=== PATIENT | female | born 1985 | race Caucasian/White ===

== ENCOUNTER 2020-10-23 09:05 | Emergency (ER) | payer MEDICAID ==
[~2020-10-23] VITALS: Ht 170.2 cm; Wt 229.1 kg
[2020-10-23] MEDS ORDERED: normal saline 1000ML IV soln IVB ONE (09:40)
[2020-10-23] MEDS ORDERED: ondansetron/PF 4mg/2ml inj IV ONE (09:40)
[2020-10-23 10:04] LABS: BASOPHILS % (AUTO) 0.4 % (0-1); EOSINOPHILS # (AUTO) 0.4 X10'3 (0-0.9); EOSINOPHILS % (AUTO) 3.3 % (0-6); HEMATOCRIT 38.2 % (35.0-45.0); HEMOGLOBIN 12.9 g/dl (12.0-16.0); LYMPHOCYTES # (AUTO) 1.7 X10'3 (1.1-4.8); LYMPHOCYTES % (AUTO) 15.9 % (21-51); MEAN CORPUSCULAR HEMOGLOBIN 29.4 PG (27.0-31.0); MEAN CORPUSCULAR HGB CONC 33.6 g/dL (33.0-36.5); MEAN CORPUSCULAR VOLUME 87.4 FL (78-98); MONOCYTES # (AUTO) 0.6 X10'3 (0-0.9); MONOCYTES % (AUTO) 5.3 % (2-12); NEUTROPHILS # (AUTO) 8.2 X10'3 (1.8-7.7); NEUTROPHILS % (AUTO) 75.1 % (42-75); PLATELET COUNT 297 X10'3 (140-440); RED BLOOD COUNT 4.38 X10'6 (4.20-5.60); RED CELL DISTRIBUTION WIDTH 14.2 % (11.5-14.5)
[2020-10-23 10:14] LABS: ALANINE AMINOTRANSFERASE 35 U/L (12-78); ALBUMIN 3.1 G/DL (3.4-5.0); ALBUMIN/GLOBULIN RATIO 0.7 (1.1-1.5); ALKALINE PHOSPHATASE 75 IU/L (46-116); ANION GAP 10 (8-16); ASPARTATE AMINO TRANSFERASE 25 U/L (10-37); BILIRUBIN,TOTAL 0.4 MG/DL (0.1-1.0); BLOOD UREA NITROGEN 14 MG/DL (7-18); BUN/CREATININE RATIO 18.4 (6.6-38.0); CHLORIDE 106 MMOL/L (99-107); CREATININE 0.76 MG/DL (0.40-0.90); GLUCOSE 95 MG/DL (70-104); LIPASE 109 U/L (73-393); POTASSIUM 3.4 MMOL/L (3.5-5.1); SODIUM 141 MMOL/L (135-145); TOTAL CARBON DIOXIDE 25.3 MMOL/L (24-32); TOTAL PROTEIN 7.3 G/DL (6.4-8.2); eGFR 86 ML/MIN
[2020-10-23 10:19] LABS: CALCIUM 8.3 MG/DL (8.5-10.1)
[2020-10-23 11:01] LABS: URINE HCG NEGATIVE (NEG)
[2020-10-23 11:04] LABS: CLARITY,URINE CLOUDY (Clear); COLOR,URINE YELLOW (Yellow); GLUCOSE, URINE NEGATIVE (Neg); KETONES,URINE NEGATIVE (Neg); LEUKOCYTE ESTERASE ,URINE MODERATE (Neg); NITRITES, URINE NEGATIVE (Neg); OCCULT BLOOD,URINE LARGE (Neg); PROTEIN,URINE 100 mg/dl (Neg); UROBILINOGEN,URINE 0.2 E.U/dL (0.2-1.0)
[2020-10-23 11:08] LABS: UA COLLECTION TYPE CLN CATCH MIDSTREAM
[2020-10-23 11:26] LABS: RBC,URINE TNTC /HPF (0-2); SQUAMOUS EPITHELIAL CELL,UR MANY /LPF (FEW); WBC,URINE TNTC /HPF (0-4)
[2020-10-23 11:27] LABS: WBC CLUMPS,URINE FEW /HPF (NEGATIVE)
[2020-10-23 11:28] LABS: TRICHOMONAS,URINE FEW /HPF (NEGATIVE)
[2020-10-23 11:30] LABS: BACTERIA,URINE 1+ /HPF (Neg)
[2020-10-23] MEDS ORDERED: iohexol 300mg/ml 100ml inj. ONE (11:31)
[2020-10-23] MEDS ORDERED: CefTRIAXone 1000mg IM Kit (w/lidocaine diluent) IM STA (14:36)
[2020-10-23] MEDS ORDERED: azithromycin 250mg tablet PO ONE (14:40)
[2020-10-23] MEDS ORDERED: METR500T PO (14:43)
[2020-10-23] MEDS ORDERED: morphine 4 MG/ML inj SYRINge IV ONE (14:55)
[2020-10-23] MEDS ORDERED: normal saline 1000ml 1,000 ML IVB ONE (15:25)
[2020-10-23] MEDS ORDERED: CefTRIAXone 2gm/D5W 50ml BAG 50 ML IV ONE (15:35)
[2020-10-23 16:10] VITALS: BP 130/68
== END 2020-10-23 22:00 | disposition home or self-care (01) ==
LOC: ER 09:06
DX: A59.9 Trichomoniasis, unspecified (principal); R31.9 Hematuria, unspecified; R19.7 Diarrhea, unspecified; Z98.51 Tubal ligation status; Z98.890 Other specified postprocedural states; Z79.899 Other long term (current) drug therapy; Z88.8 Allergy status to other drugs, medicaments and biological substances; Z88.5 Allergy status to narcotic agent
CPT/HCPCS: 36415; 74177; 76700; 80053; 81001; 81025; 83690; 84145; 85025; 87491; 87591; 96361; 96365; 96375; 99285; J0696; J2270; J2405; J7030; Q9967